=== PATIENT | female | born 1945 | race Caucasian/White ===

== ENCOUNTER 2016-06-24 09:33 | Outpatient (CLI) | payer MEDICARE ==
--- NOTE | 2016-06-24 11:15 | Ultrasound Report ---
Bilateral mammogram and left breast ultrasound: The patient presents with a history of a palpable nodule in the left breast. A marker was placed over the area identified by the patient and his oral medial breast. Routine views were obtained in addition to spot compression CC and lateral images. The breast pattern is diffusely fatty. No focal finding is identified in either breast and specifically in the area identified by the patient. Ultrasound performed over the palpable area failed to identify any mass or other architectural change. CAD used. Impression: Negative mammogram and focal left breast ultrasound. Recommendation: Clinical followup. Any additional evaluation at this time should be based on your concern. Annual mammogram followup. BI-RADS CATEGORY: 1 = Negative ACR BI-RADS MAMMOGRAPHIC CODES: 0 = Needs additional imaging evaluation; 1 = Negative; 2 = Benign; 3 = Probably benign; 4 = Suspicious; 5 = Malignant; 6 = Known biopsy-proven malignancy COMMENT: 1. Dense breast tissue, i.e., adenosis, fibrocystic changes, etc., may obscure an underlying neoplasm. 2. Approximately 10% of cancers are not detected with mammography. 3. A negative mammography report should not delay biopsy if a clinically suspicious mass is present.
== END 2016-06-24 09:34 | disposition home or self-care (01) ==
LOC: MAMMO 09:33
PROVIDERS: ATTEND Internal Medicine
DX: N60.02 Solitary cyst of left breast (principal); N64.89 Other specified disorders of breast
CPT/HCPCS: 76642; G0204; 77066

== ENCOUNTER 2016-12-29 23:19 | Emergency (ER) | payer MEDICARE ==
[2016-12-30 00:04] LABS: Basophils % (Auto) 1.3 % (0.0-1.8); Eosinophils % (Auto) 3.1 % (0.0-4.3); Hematocrit 34.2 % (30.3-42.9); Hemoglobin 11.1 gm/dl (10.1-14.3); Mean Corpuscular HGB Conc 33 % (30-34); Mean Corpuscular Hemoglobin 28 pg (28-32); Mean Corpuscular Volume 85 fl (79-97); Platelet Count 304 K/mm3 (140-440); Red Blood Count 4.02 M/mm3 (3.65-5.03); Red Cell Distribution Width 13.8 % (13.2-15.2); White Blood Count 12.5 K/mm3 (4.5-11.0)
--- NOTE | 2016-12-30 00:09 | Emergency Department Report ---
ED General Adult HPI - General Chief complaint: Pain General Stated complaint: GENERAL SICKNESS/LEG/BACK/ARM PAIN Time Seen by Provider: 12/29/16 23:46 Source: patient, RN notes reviewed, old records reviewed Mode of arrival: Stretcher Limitations: Language Barrier - History of Present Illness Initial comments: spanish teacher: Taylor Anjum This is a 71-year-old female. She is previously unknown to me. Past medical history includes stroke, COPD, ataxia, insomnia. Patient presents to the ER with complaint of left lower extremity tingling. This has been going on for 3 weeks. It is constant. There is no exacerbating or relieving factors. The patient denies chest pain, but does complain of a bump in her left breast. She also missed a chronic cough. Patient also complains of chronic lower back pain. No bladder or bowel retention or incontinence. No saddle anesthesia. No irritative or obstructive urinary symptoms. Patient recently admitted to the hospital for chest pain. Had an essentially negative nuclear stress test. Patient cannot describe exacerbating or relieving factors. -: Gradual Location: left, lower extremity Severity scale (0 -10): 8 Consistency: constant Improves with: none Worsens with: none Associated Symptoms: cough, shortness of breath (chronic) - Related Data Home Medications Medication Instructions Recorded Confirmed Last Taken Acetaminophen [Acetaminophen 8 650 mg PO Q8HR PRN 12/09/16 12/29/16 Unknown Hour] Cranberry Fruit Concentrate [Azo 250 mg PO DAILY 12/09/16 12/29/16 Unknown Cranberry] Famotidine [Pepcid] 20 mg PO DAILY 12/09/16 12/29/16 Unknown Fluticasone/Salmeterol [Advair 1 puff IH BID 12/09/16 12/29/16 Unknown Diskus 250-50 mcg] Furosemide [Lasix TAB] 40 mg PO QDAY 12/09/16 12/29/16 Unknown Losartan/Hydrochlorothiazide 1 each PO DAILY 12/09/16 12/29/16 Unknown [Losartan-Hctz 100-25 mg Tab] Meclizine [Antivert] 25 mg PO TID PRN 12/09/16 12/29/16 Unknown Montelukast [Singulair] 10 mg PO QPM 12/09/16 12/29/16 Unknown Tiotropium [Spiriva] 18 mcg IH QDAY 12/09/16 12/29/16 Unknown Verapamil [Calan] 120 mg PO QAM 12/09/16 12/29/16 Unknown clonazePAM [KlonoPIN] 0.5 mg PO BID PRN 12/09/16 12/29/16 Unknown metFORMIN [Glucophage] 500 mg PO BID 12/09/16 12/29/16 Unknown risperiDONE [RisperDAL] 1 mg PO QAM 12/09/16 12/29/16 Unknown risperiDONE [RisperDAL] 2 mg PO QHS 12/09/16 12/29/16 Unknown traMADol [Ultram 50 MG tab] 50 mg PO Q6HR PRN 12/09/16 12/29/16 Unknown traZODone [Desyrel] 50 mg PO QHS 12/09/16 12/29/16 Unknown Albuterol Sulfate [Albuterol 0.63% 1 vial INHALATION Q6HR PRN 12/29/16 12/29/16 Unknown NEBS] Docusate Sodium [Colace] 100 mg PO BID PRN 12/29/16 12/29/16 Unknown HYDROcodone/APAP 7.5-325 [Walnut 1 each PO Q6HR PRN 12/29/16 12/29/16 Unknown 7.5/325] Insulin Aspart [NovoLOG Flexpen] See Protocol SQ AC 12/29/16 12/29/16 Unknown Lactobacillus Acidophilus 1 each PO TID 12/29/16 12/29/16 Unknown [Acidophilus] Sennosides [Senna] 8.6 mg PO BID 12/29/16 12/29/16 Unknown Venlafaxine [Effexor 37.5mg tab] 37.5 mg PO QDAY 12/29/16 12/29/16 Unknown Previous Rx's Medication Instructions Recorded Last Taken Type Nitrofurantoin Wharton/M-Cryst 100 mg PO Q12HR #14 capsule 12/30/16 Unknown Rx [Macrobid CAP] Allergies Allergy/AdvReac Type Severity Reaction Status Date / Time aspirin Allergy Rash Verified 12/29/16 23:27 ibuprofen [From Motrin] Allergy Rash Verified 04/26/16 21:24 ED Review of Systems ROS: Stated complaint: GENERAL SICKNESS/LEG/BACK/ARM PAIN Other details as noted in HPI ED Past Medical Hx - Past Medical History Previous Medical History?: Yes Hx CVA: Yes Hx Congestive Heart Failure: Yes Hx Diabetes: Yes Hx Psychiatric Treatment: Yes (Anxiety) Hx COPD: Yes Additional medical history: Chronic pain - Surgical History Past Surgical History?: Yes Additional Surgical History: Bilateral Shoulder surgery - Social History Smoking Status: Never Smoker Substance Use Type: None - Medications Home Medications: Home Medications Medication Instructions Recorded Confirmed Last Taken Type Acetaminophen [Acetaminophen 8 650 mg PO Q8HR PRN 12/09/16 12/29/16 Unknown History Hour] Cranberry Fruit Concentrate [Azo 250 mg PO DAILY 12/09/16 12/29/16 Unknown History Cranberry] Famotidine [Pepcid] 20 mg PO DAILY 12/09/16 12/29/16 Unknown History Fluticasone/Salmeterol [Advair 1 puff IH BID 12/09/16 12/29/16 Unknown History Diskus 250-50 mcg] Furosemide [Lasix TAB] 40 mg PO QDAY 12/09/16 12/29/16 Unknown History Losartan/Hydrochlorothiazide 1 each PO DAILY 12/09/16 12/29/16 Unknown History [Losartan-Hctz 100-25 mg Tab] Meclizine [Antivert] 25 mg PO TID PRN 12/09/16 12/29/16 Unknown History Montelukast [Singulair] 10 mg PO QPM 12/09/16 12/29/16 Unknown History Tiotropium [Spiriva] 18 mcg IH QDAY 12/09/16 12/29/16 Unknown History Verapamil [Calan] 120 mg PO QAM 12/09/16 12/29/16 Unknown History clonazePAM [KlonoPIN] 0.5 mg PO BID PRN 12/09/16 12/29/16 Unknown History metFORMIN [Glucophage] 500 mg PO BID 12/09/16 12/29/16 Unknown History risperiDONE [RisperDAL] 1 mg PO QAM 12/09/16 12/29/16 Unknown History risperiDONE [RisperDAL] 2 mg PO QHS 12/09/16 12/29/16 Unknown History traMADol [Ultram 50 MG tab] 50 mg PO Q6HR PRN 12/09/16 12/29/16 Unknown History traZODone [Desyrel] 50 mg PO QHS 12/09/16 12/29/16 Unknown History Albuterol Sulfate [Albuterol 0.63% 1 vial INHALATION Q6HR PRN 12/29/16 12/29/16 Unknown History NEBS] Docusate Sodium [Colace] 100 mg PO BID PRN 12/29/16 12/29/16 Unknown History HYDROcodone/APAP 7.5-325 [Walnut 1 each PO Q6HR PRN 12/29/16 12/29/16 Unknown History 7.5/325] Insulin Aspart [NovoLOG Flexpen] See Protocol SQ AC 12/29/16 12/29/16 Unknown History Lactobacillus Acidophilus 1 each PO TID 12/29/16 12/29/16 Unknown History [Acidophilus] Sennosides [Senna] 8.6 mg PO BID 12/29/16 12/29/16 Unknown History Venlafaxine [Effexor 37.5mg tab] 37.5 mg PO QDAY 12/29/16 12/29/16 Unknown History Nitrofurantoin Wharton/M-Cryst 100 mg PO Q12HR #14 capsule 12/30/16 Unknown Rx [Macrobid CAP] ED Physical Exam - General Limitations: Language Barrier General appearance: alert, in no apparent distress - Head Head exam: Present: atraumatic, normocephalic - Eye Eye exam: Present: normal appearance, PERRL, EOMI, other (visual acuity intact to finger counting, color perception, reading at a close distance). Absent: nystagmus - ENT ENT exam: Present: normal exam, normal orophraynx, mucous membranes moist, normal external ear exam - Neck Neck exam: Present: normal inspection, full ROM. Absent: tenderness, meningismus - Respiratory Respiratory exam: Present: normal lung sounds bilaterally. Absent: respiratory distress, wheezes, rales, rhonchi, stridor, chest wall tenderness, accessory muscle use, decreased breath sounds, prolonged expiratory - Cardiovascular Cardiovascular Exam: Present: regular rate, normal rhythm, normal heart sounds. Absent: bradycardia, tachycardia, irregular rhythm, systolic murmur, diastolic murmur, rubs, gallop - GI/Abdominal GI/Abdominal exam: Present: soft, normal bowel sounds. Absent: distended, tenderness, guarding, rebound, rigid, pulsatile mass - Extremities Exam Extremities exam: Present: normal inspection (pelvis is stable.), full ROM, normal capillary refill, other (downgoing plantar reflexes bilaterally. Compartments are soft. 2+ pulses noted in the bilateral upper extremities. There is no palpable cord. There is negative Homans sign.). Absent: tenderness , calf tenderness (sensation intact to light touch and pinprick in the bilateral lower extremities) - Back Exam Back exam: Present: normal inspection, full ROM, paraspinal tenderness. Absent : tenderness, CVA tenderness (R) - Neurological Exam Neurological exam: Present: alert, oriented X3, other (Extraocular movements intact. Tongue midline. No facial droop. Facial sensation intact to light touch in the V1, V2, V3 distribution bilaterally. 5 and 5 strength in 4 extremities.. Sensation is intact to light touch in 4 extremities.). Absent: motor sensory deficit - Psychiatric Psychiatric exam: Present: normal affect, normal mood - Skin Skin exam: Present: warm, dry, intact, normal color. Absent: rash ED Course Vital Signs 12/29/16 12/29/16 12/29/16 23:26 23:27 23:30 Temperature Pulse Rate 80 82 80 Respiratory 21 22 21 Rate Blood Pressure 123/53 123/53 Blood Pressure [Left] O2 Sat by Pulse 97 96 97 Oximetry 12/29/16 12/29/16 12/30/16 23:38 23:39 00:00 Temperature 98.3 F Pulse Rate 82 Respiratory 18 19 Rate Blood Pressure 112/51 Blood Pressure [Left] O2 Sat by Pulse 98 96 Oximetry 12/30/16 12/30/16 12/30/16 00:49 01:00 01:30 Temperature Pulse Rate 80 85 Respiratory 22 14 Rate Blood Pressure 116/50 120/59 120/59 Blood Pressure [Left] O2 Sat by Pulse 98 Oximetry 12/30/16 12/30/16 12/30/16 02:00 02:30 02:40 Temperature 98.0 F Pulse Rate 78 77 77 Respiratory 18 16 18 Rate Blood Pressure 122/42 115/47 Blood Pressure 115/47 [Left] O2 Sat by Pulse 96 97 Oximetry 12/30/16 12/30/16 12/30/16 03:00 03:30 04:00 Temperature Pulse Rate 76 79 84 Respiratory 19 18 18 Rate Blood Pressure 115/47 120/52 104/59 Blood Pressure [Left] O2 Sat by Pulse 97 98 98 Oximetry - Reevaluation(s) Reevaluation #1: 12/30/16 01:05 Differential diagnosis: Radiculopathy, DJD, AAA, urinary tract infection, mechanical back pain, hemorrhagic stroke, intracranial lesion Assessment and plan: 71-year-old female with 3 weeks of left leg pain, and tingling. She is afebrile, with reassuring vital signs. Her neurologic examination is unremarkable. Her lower extremity examination is unremarkable bilaterally. Clinically doubt DVT or cellulitis. Laboratory studies pending. Noncontrast CT scan of the brain is pending. CT scan of the abdomen and pelvis is pending. Urinalysis is pending. Chest x-ray is pending. ED Medical Decision Making - Lab Data Result diagrams: 12/29/16 23:43 12/29/16 23:43 Vital Signs 12/29/16 12/29/16 12/29/16 23:27 23:38 23:39 Temperature 98.3 F Pulse Rate 82 Respiratory 22 18 Rate Blood Pressure 123/53 O2 Sat by Pulse 96 98 Oximetry Lab Results 12/29/16 12/29/16 12/30/16 Range/Units 23:43 23:43 00:16 WBC 12.5 H (4.5-11.0) K/mm3 RBC 4.02 (3.65-5.03) M/mm3 Hgb 11.1 (10.1-14.3) gm/dl Hct 34.2 (30.3-42.9) % MCV 85 (79-97) fl MCH 28 (28-32) pg MCHC 33 (30-34) % RDW 13.8 (13.2-15.2) % Plt Count 304 (140-440) K/mm3 Lymph % (Auto) 27.2 (13.4-35.0) % Wharton % (Auto) 8.1 H (0.0-7.3) % Eos % (Auto) 3.1 (0.0-4.3) % Baso % (Auto) 1.3 (0.0-1.8) % Lymph # 3.4 (1.2-5.4) K/mm3 Wharton # 1.0 H (0.0-0.8) K/mm3 Eos # 0.4 (0.0-0.4) K/mm3 Baso # 0.2 H (0.0-0.1) K/mm3 Seg Neutrophils % 60.3 (40.0-70.0) % Seg Neutrophils # 7.5 (1.8-7.7) K/mm3 PT 12.6 (12.2-14.9) Sec. INR 0.95 (0.87-1.13) D-Dimer 408.50 H (0-234) ng/mlDDU Sodium 134 L (137-145) mmol/L Potassium 3.4 L (3.6-5.0) mmol/L Chloride 94.4 L (98-107) mmol/L Carbon Dioxide 25 (22-30) mmol/L Anion Gap 18 mmol/L BUN 21 H (7-17) mg/dL Creatinine 0.6 L (0.7-1.2) mg/dL Estimated GFR > 60 ml/min BUN/Creatinine Ratio 35.00 % Glucose 128 H (65-100) mg/dL Calcium 8.6 (8.4-10.2) mg/dL Troponin T < 0.010 (0.00-0.029) ng/mL - EKG Data -: EKG Interpreted by Me - EKG Data 12/30/16 01:04 Normal sinus, 85 bpm, left axis deviation, abnormal EKG, premature ventricular complex, not consistent with STEMI, appears unchanged from prior EKG from 2016 - Radiology Data Radiology results: pending Critical care attestation.: If time is entered above; I have spent that time in minutes in the direct care of this critically ill patient, excluding procedure time. ED Disposition Clinical Impression: Leg pain, UTI (urinary tract infection) Disposition: DC/TX-70 ANOTHER TYPE HLTHCARE Is pt being admited?: No Does the pt Need Aspirin: No Condition: Stable Instructions: Lumbar Radiculopathy (ED), Arthralgia (ED) Additional Instructions: Continue current outpatient medications. Cultures were sent today, results will be available in the next 3-5 days. Have your primary care doctor contact the medical records department to obtain culture results. Contact the outpatient vascular lab to arrange an outpatient ultrasound of lower extremities. Return to the ER right away with new pain, worsened pain, migration of pain, fevers, chills, chest pain, shortness of breath, confusion, intractable nausea or vomiting, inability to tolerate liquid feeds. Take antibiotics as directed. Prescriptions: Nitrofurantoin Wharton/M-Cryst [Macrobid CAP] 100 mg PO Q12HR #14 capsule Referrals: PRIMARY CAREMD [Primary Care Provider] - 3-5 Days DOMINGUEZ OLSON MD [Staff Physician] - 3-5 Days
[2016-12-30 00:17] LABS: Blood Urea Nitrogen 21 mg/dL (7-17); Calcium 8.6 mg/dL (8.4-10.2); Carbon Dioxide 25 mmol/L (22-30); Chloride 94.4 mmol/L (98-107); Glucose 128 mg/dL (65-100); Potassium 3.4 mmol/L (3.6-5.0); Sodium 134 mmol/L (137-145)
[2016-12-30 00:18] LABS: Anion Gap 18 mmol/L
--- NOTE | 2016-12-30 00:54 | Cat Scan Report ---
FINAL REPORT EXAM: CT HEAD/BRAIN WO CON HISTORY: lle numbness x 3 weeks COMPARISON: None available. TECHNIQUE: Axial images obtained skull base through vertex. FINDINGS: No acute intracranial hemorrhage, midline shift or pathologic extra axial fluid collection. Age related volume loss with compensatory dilatation of the ventricular system and chronic small vessel ischemic disease. Otherwise, gilman-white differentiation preserved. Calvarium grossly intact. Prior cataract surgery. Minimal mucosal thickening the paranasal sinuses. Mastoid air cells are clear. IMPRESSION: No grossly acute intracranial abnormality. Mild to moderate age related volume loss and chronic small vessel ischemic disease. If clinical concern for acute intracranial process remains, MRI would be suggested for further evaluation.
[2016-12-30 00:58] LABS: INR 0.95 (0.87-1.13)
--- NOTE | 2016-12-30 01:03 | Cat Scan Report ---
FINAL REPORT EXAM: CT ABDOMEN PELVIS WO CON HISTORY: back pain lle numbness COMPARISON: April 2016 CT of the abdomen and pelvis. TECHNIQUE: Contiguous axial images were obtained. Additional sagittal and coronal reformatted images were obtained. FINDINGS: Mild linear atelectasis at the lung bases. There are 2 large calcified gallstones. There is a gallstone at the gallbladder neck measuring 2.6 centimeters at the fundus measuring 2.5 centimeters. No adjacent fat stranding or fluid. Liver, spleen, pancreas and adrenal glands are grossly unremarkable no nephrolithiasis or hydronephrosis. Aorta and IVC normal in caliber. Mild calcification aorta. No distal ureteral or urinary bladder calculi. There are few pelvic phleboliths. Uterus and ovaries are grossly unremarkable. No free fluid or lymphadenopathy. Large and small bowel loops are normal in caliber. Cecum is slightly high in position along the right mid abdomen. Appendix is not visualized. However, there is no pericecal stranding or fluid to suggest acute inflammation. Moderate degenerative changes of the lumbar spine. Bony pelvis is grossly intact. IMPRESSION: Cholelithiasis. No gross inflammatory changes the gallbladder by CT. If the patient has right upper quadrant pain, abdominal ultrasound or nuclear medicine HIDA scan may be of benefit for further evaluation. No gross focal inflammatory changes of the abdomen and pelvis.
[2016-12-30] MEDS ORDERED: K-DUR PO ONE (01:04)
--- NOTE | 2016-12-30 01:26 | XRay Report ---
FINAL REPORT EXAM: XR CHEST 1V AP HISTORY: cough COMPARISON: None available. FINDINGS: Frontal view(s) of the chest obtained. Heart upper limits normal in size. Shallow inspiration with crowding of bronchovascular markings. No dense consolidation or effusion. No pneumothorax. IMPRESSION: Shallow inspiration. No gross focal consolidation.
[2016-12-30 01:49] LABS: Bacteria,Urine 4+ /HPF (Negative); Bilirubin,Urine NEG (Negative); Blood,Urine NEG (Negative); Ketones,Urine NEG (Negative); Leukocyte Esterase,Urine SM (Negative); Mucus,Urine FEW /HPF; Nitrite,Urine NEG (Negative); Protein,Urine <15 mg/dL mg/dL (Negative); RBC,Urine < 1.0 /HPF (0.0-6.0); Urobilinogen,Urine < 2.0 mg/dL (<2.0)
--- NOTE | 2016-12-30 02:39 | Event Note ---
Date: 12/30/16 Due to a technical issue, I am unable to charts on my previous note at this time. CT scan of the brain is negative for acute findings. Chronic findings are noted. CT scan abdomen and pelvis demonstrates multiple incidental findings, including cholelithiasis. There is no right upper quadrant tenderness. X-ray of the chest is negative. Urinalysis suggests urinary tract infection. Patient resting comfortably in no distress. D-dimer elevated. This was sent to risk stratify the patient for left lower extremity DVT. I will withhold systemic anticoagulation as the patient is high risk for fall. An outpatient ultrasound has been ordered. She'll also be discharged with Macrobid. Vital Signs 12/29/16 12/29/16 12/29/16 23:27 23:38 23:39 Temperature 98.3 F Pulse Rate 82 Respiratory 22 18 Rate Blood Pressure 123/53 O2 Sat by Pulse 96 98 Oximetry Lab Results 12/29/16 12/29/16 12/30/16 Range/Units 23:43 23:43 00:16 WBC 12.5 H (4.5-11.0) K/mm3 RBC 4.02 (3.65-5.03) M/mm3 Hgb 11.1 (10.1-14.3) gm/dl Hct 34.2 (30.3-42.9) % MCV 85 (79-97) fl MCH 28 (28-32) pg MCHC 33 (30-34) % RDW 13.8 (13.2-15.2) % Plt Count 304 (140-440) K/mm3 Lymph % (Auto) 27.2 (13.4-35.0) % Ford % (Auto) 8.1 H (0.0-7.3) % Eos % (Auto) 3.1 (0.0-4.3) % Baso % (Auto) 1.3 (0.0-1.8) % Lymph # 3.4 (1.2-5.4) K/mm3 Ford # 1.0 H (0.0-0.8) K/mm3 Eos # 0.4 (0.0-0.4) K/mm3 Baso # 0.2 H (0.0-0.1) K/mm3 Seg Neutrophils % 60.3 (40.0-70.0) % Seg Neutrophils # 7.5 (1.8-7.7) K/mm3 PT 12.6 (12.2-14.9) Sec. INR 0.95 (0.87-1.13) D-Dimer 408.50 H (0-234) ng/mlDDU Sodium 134 L (137-145) mmol/L Potassium 3.4 L (3.6-5.0) mmol/L Chloride 94.4 L (98-107) mmol/L Carbon Dioxide 25 (22-30) mmol/L Anion Gap 18 mmol/L BUN 21 H (7-17) mg/dL Creatinine 0.6 L (0.7-1.2) mg/dL Estimated GFR > 60 ml/min BUN/Creatinine Ratio 35.00 % Glucose 128 H (65-100) mg/dL Calcium 8.6 (8.4-10.2) mg/dL Total Creatine Kinase (30-135) units/L Troponin T < 0.010 (0.00-0.029) ng/mL Urine Color (Yellow) Urine Turbidity (Clear) Urine pH (5.0-7.0) Ur Specific Soldier (1.003-1.030) Urine Protein (Negative) mg/dL Urine Glucose (UA) (Negative) mg/dL Urine Ketones (Negative) mg/dL Urine Blood (Negative) Urine Nitrite (Negative) Urine Bilirubin (Negative) Urine Urobilinogen (<2.0) mg/dL Ur Leukocyte Esterase (Negative) Urine WBC (Auto) (0.0-6.0) /HPF Urine RBC (Auto) (0.0-6.0) /HPF U Epithel Cells (Auto) (0-13.0) /HPF Urine Bacteria (Auto) (Negative) /HPF Urine Mucus /HPF 12/30/16 12/30/16 Range/Units 00:16 01:19 WBC (4.5-11.0) K/mm3 RBC (3.65-5.03) M/mm3 Hgb (10.1-14.3) gm/dl Hct (30.3-42.9) % MCV (79-97) fl MCH (28-32) pg MCHC (30-34) % RDW (13.2-15.2) % Plt Count (140-440) K/mm3 Lymph % (Auto) (13.4-35.0) % Ford % (Auto) (0.0-7.3) % Eos % (Auto) (0.0-4.3) % Baso % (Auto) (0.0-1.8) % Lymph # (1.2-5.4) K/mm3 Ford # (0.0-0.8) K/mm3 Eos # (0.0-0.4) K/mm3 Baso # (0.0-0.1) K/mm3 Seg Neutrophils % (40.0-70.0) % Seg Neutrophils # (1.8-7.7) K/mm3 PT (12.2-14.9) Sec. INR (0.87-1.13) D-Dimer (0-234) ng/mlDDU Sodium (137-145) mmol/L Potassium (3.6-5.0) mmol/L Chloride (98-107) mmol/L Carbon Dioxide (22-30) mmol/L Anion Gap mmol/L BUN (7-17) mg/dL Creatinine (0.7-1.2) mg/dL Estimated GFR ml/min BUN/Creatinine Ratio % Glucose (65-100) mg/dL Calcium (8.4-10.2) mg/dL Total Creatine Kinase 78 (30-135) units/L Troponin T (0.00-0.029) ng/mL Urine Color Yellow (Yellow) Urine Turbidity Clear (Clear) Urine pH 6.0 (5.0-7.0) Ur Specific Soldier 1.018 (1.003-1.030) Urine Protein <15 mg/dl (Negative) mg/dL Urine Glucose (UA) Neg (Negative) mg/dL Urine Ketones Neg (Negative) mg/dL Urine Blood Neg (Negative) Urine Nitrite Neg (Negative) Urine Bilirubin Neg (Negative) Urine Urobilinogen < 2.0 (<2.0) mg/dL Ur Leukocyte Esterase Sm (Negative) Urine WBC (Auto) 17.0 H (0.0-6.0) /HPF Urine RBC (Auto) < 1.0 (0.0-6.0) /HPF U Epithel Cells (Auto) 1.0 (0-13.0) /HPF Urine Bacteria (Auto) 4+ (Negative) /HPF Urine Mucus Few /HPF
[2016-12-30 04:13] VITALS: BP 104/59
== END 2016-12-30 04:31 | disposition other institution (70) ==
LOC: ED 23:19
DX: N39.0 Urinary tract infection, site not specified (principal); M79.606 Pain in leg, unspecified; I50.9 Heart failure, unspecified; E11.9 Type 2 diabetes mellitus without complications; J44.9 Chronic obstructive pulmonary disease, unspecified; K80.20 Calculus of gallbladder without cholecystitis without obstruction; M54.9 Dorsalgia, unspecified
CPT/HCPCS: 36415; 70450; 71010; 74176; 80048; 81001; 82550; 84484; 85025; 85379; 85610; 93005; 93010